=== PATIENT | female | born 1985 | race Caucasian/White ===

== ENCOUNTER 2024-05-27 01:25 | Emergency (ER) | payer MEDICARE ==
[~2024-05-27] VITALS: Ht 167.6 cm; Wt 102.1 kg
[2024-05-27 01:29] VITALS: TEMP 98.5
[2024-05-27] MEDS: ORPHENADRINE CITRATE 30 MG/ML VIAL IM ONE (01:49)
[2024-05-27] MEDS: KETOROLAC TROMETHAMINE 60 MG/2 ML VIAL IM ONE (01:49)
[2024-05-27] MEDS: DIAZEPAM INJ 5 MG/ML 2 ML IV ONE (02:57)
[2024-05-27 03:12] LABS: EOSINOPHILS # (AUTO) 0.2 (0.0-0.4); EOSINOPHILS % 1.6 % (0.0-6.0); HEMATOCRIT 37.5 % (34.2-44.1); HEMOGLOBIN 12.5 g/dL (12.0-16.0); LYMPHOCYTES # (AUTO) 2.4 (1.0-3.2); LYMPHOCYTES % 19.4 % (18.0-39.1); MEAN CORPUSCULAR HGB CONC 33.3 g/dL (31-35); MEAN CORPUSCULAR VOLUME 83.9 fL (81-99); MONOCYTES # (AUTO) 0.9 (0.2-0.8); MONOCYTES % 7.1 % (4.4-11.3); NEUTROPHILS # (AUTO) 8.8 (2.1-6.9); NEUTROPHILS % 71.5 % (38.7-80.0); PLATELET COUNT 345 x10e3/uL (140-360); RED BLOOD COUNT 4.47 x10e6/uL (3.6-5.1); RED CELL DISTRIBUTION WIDTH 13.5 % (11.7-14.4); WHITE BLOOD COUNT 12.31 x10e3/uL (4.8-10.8)
[2024-05-27 03:34] LABS: ALBUMIN 3.7 g/dL (3.5-5.0); ALBUMIN/GLOBULIN RATIO 1.1 (0.8-2.0); BILIRUBIN,TOTAL 0.2 mg/dL (0.2-1.2); CALCIUM 9.5 mg/dL (8.4-10.2); CREATININE, SERUM 0.84 mg/dL (0.57-1.11); TOTAL PROTEIN 7.2 g/dL (6.5-8.1)
[2024-05-27 03:45] VITALS: PULSE 78; RESP 20; O2SAT 100
[2024-05-27] MEDS ORDERED: ORPHENADRINE C100 MG PO (03:48)
[2024-05-27] MEDS ORDERED: NAPROSYN500 MG PO (03:48)
== END 2024-05-27 04:20 | disposition home or self-care (01) ==
LOC: ER 01:35
DX: M54.50 Low back pain, unspecified (principal); G89.29 Other chronic pain; X50.1XXA Overexertion from prolonged static or awkward postures, initial encounter; Y93.E2 Activity, laundry; Y92.89 Other specified places as the place of occurrence of the external cause; Z86.19 Personal history of other infectious and parasitic diseases
CPT/HCPCS: 36415; 80053; 84702; 85025; 99283; J1885; J2360; J3360